=== PATIENT | female | born 1945 | race Caucasian/White ===

== ENCOUNTER → 2022-04-19 07:15 | Outpatient (CLI) | payer MEDICARE, OTHER, SELFPAY ==
--- NOTE | ~2022-04-19 | MR_ITS ---
EXAMINATION: MR ankle LT wo con DATE: 04/19/2022 08:04 INDICATION: Left ankle pain. Evaluate for fracture. TECHNIQUE: Magnetic resonance imaging (MRI) of the left ankle was performed without intravenous contr ast. Sequences included sagittal, coronal, and axial proton-density weighted fast spin echo without a nd with fat saturation. COMPARISON: None. FINDINGS: Medial ankle ligaments: Deep deltoid ligament is normal. There is thickening of the anterior aspect of the superficial deltoi d ligament and the superomedial component of the spring ligament complex without surrounding edema to suggest acute injury consistent with mild scarring related to chronic sprain. The medial plantar obl ique and infra plantar lateral components of the spring ligament complex are normal. Lateral ankle ligaments: The anterior and posterior inferior tibiofibular ligaments are normal. The anterior talofibular, calc aneofibular and posterior talofibular ligaments are normal. Tendons: Achilles tendon is normal. The peroneus longus and brevis tendons are normal. The tibialis anterior a nd extensor hallucis longus and extensor digitorum longus tendons are normal. The tibialis posterior, flexor digitorum longus and flexor hallucis longus tendons are normal. Plantar fascia: Plantar aponeurosis is normal. Bones/other: There is a small region of chronic depression of the articular cortex along the posterior aspect of t he medial rim of the talar dome without surrounding edema consistent with a chronic collapsed osteoch ondral lesion. No fracture or pathologic marrow replacing process. Fluid: Physiologic amount of fluid in the joint spaces. There is a large ganglion cyst measuring approximate ly 3.2 x 2.4 x 1.7 cm which extends along the dorsal lateral margin of the head of the talus and talo navicular joint, deep to the inferior extensor retinaculum. IMPRESSION: 1. Chronic sprain of the anterior superficial deltoid ligament and at the superomedial component of t he spring ligament complex. 2. 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 3. Large ganglion cyst extending along the dorsal lateral aspect of the head of the talus and talonav icular joint. Reviewed, dictated and finalized at location A. IMPRESSION: 1. Chronic sprain of the anterior superficial deltoid ligament and at the super omedial component of the spring ligament complex. 2. 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 3. Large ganglion cyst extending along the dorsal lateral aspect of the head of the talus and talonavicular joint.
== END ==
PROVIDERS: Visit Provider Orthopaedic Surgery
DX: M84.372A Stress fracture, left ankle, initial encounter for fracture (principal); X58.XXXA Exposure to other specified factors, initial encounter
CPT/HCPCS: 73721

== ENCOUNTER 2024-03-13 15:40 | Outpatient (CLI) | payer MEDICARE, OTHER, SELFPAY ==
--- NOTE | ~2024-03-13 | MR_ITS ---
Procedure: MR lumbar spine wo con Ordering provider: Neil Joyce History: . Low back pain . Comparison: None. Technique: MRI thoracic spine without contrast. FINDINGS: SPINAL CORD: Normal. The cord ends at the level of L1. VERTEBRAL BODIES: Normal height and alignment. No compression fracture. Normal marrow signal. T2 brig ht signal in the left apical of S1 DISK SPACES: Narrowing of the disc L4-L5. Endplate changes seen at the level of L4-L5 and L5-S1. STENOSIS: Moderate spinal canal stenosis at the level of L3-L4. Diffuse disc bulge with thickening of the ligam enta flava at the same level. No definite root compression. Severe spinal canal stenosis at the level of L4-L5 with diffuse disc bulge with thickening of the lig amenta flava. Significant spinal canal stenosis at the level of L5-S1 with diffuse disc bulge and thickening of the ligamenta flava. PARASPINOUS SOFT TISSUES: Right renal cyst. IMPRESSION: No compression fracture of the thoracic spine. T2 bright signal in the left pedicle. Follow-up advised. Multilevel degenerative disc disease with spinal canal stenosis at the levels of L3-4, L4-L5 and L5-S 1. Reviewed, dictated and finalized at location A. IMPRESSION: No compression fracture of the thoracic spine. T2 bright signal in the left pedicle. Follow-up advised. Multilevel degenerative disc disease with spinal canal stenosis at the levels o f L3-4, L4-L5 and L5-S1.
== END 2024-03-13 15:41 ==
LOC: MICIMG 15:44
DX: M51.36 Other intervertebral disc degeneration, lumbar region (principal); M51.37 Other intervertebral disc degeneration, lumbosacral region; M48.061 Spinal stenosis, lumbar region without neurogenic claudication; M48.07 Spinal stenosis, lumbosacral region
CPT/HCPCS: 72148